=== PATIENT | male | born 1960 | race Caucasian/White ===

== ENCOUNTER 2019-12-16 16:45 | Inpatient (IN) | payer OTHER ==
[~2019-12-16] VITALS: Ht 170.2 cm; Wt 71.0 kg
[2019-12-16 17:39] LABS: BASOPHILS ABSOLUTE AUTO 2.32 K/mm3 (0.00-0.23); BASOPHILS PERCENT AUTO 1 % (0-2); Hemoglobin 13.5 g/dL (13.5-17.5); Mean Corpuscular HGB 30.2 pg (26.0-34.0); Mean Corpuscular HGB Conc 32.1 g/dL (31.5-36.5); Mean Corpuscular Volume 94 fL (80-100); NRBC ABSOLUTE 0.18 K/mm3 (0.00-0.02); NRBC Auto 0.1 /100 WBC (0.0-0.2); RDW Coefficient Variation 16.4 % (11.7-14.2); Red Blood Cell Count 4.47 M/mm3 (4.30-5.90)
[2019-12-16 17:48] LABS: Albumin, Blood 3.5 g/dL (3.4-5.0); Albumin/Globulin Ratio 0.9 (0.8-1.8); Bilirubin, Total 2.1 mg/dL (0.1-1.0); Bun/Creatinine Ratio 8.4 (12.0-20.0); Calcium, Blood 8.7 mg/dL (8.5-10.1); Creatinine, Blood 2.15 mg/dL (0.60-1.20); Globulin, Blood 3.7 g/dL (2.2-4.0); Potassium, Blood 3.1 mmol/L (3.5-5.5); Total Protein, Blood 7.2 g/dL (6.4-8.2)
[2019-12-16 18:27] LABS: BAND PERCENT MAN 2 % (0-8); BASOPHILS PERCENT MAN 1 % (0-2); EOSINOPHILS PERCENT MAN 0 % (0-6); LYMPHOCYTES PERCENT MAN 6 % (21-46); MONOCYTES PERCENT MAN 65 % (4-13); SEG NEUTROPHILS PERCENT MAN 13 % (41-73); TOTAL CELLS COUNTED 100
[2019-12-16 18:29] LABS: OTHER CELL PERCENT MAN 13 % (0-0)
[2019-12-16 18:37] LABS: EOSINOPHILS ABSOLUTE AUTO 0.17 K/mm3 (0.00-0.68); EOSINOPHILS PERCENT AUTO 0 % (0-6); IMMATURE GRAN ABSOLUTE AUTO 15.35 K/mm3 (0.00-0.10); IMMATURE GRAN PERCENT AUTO 5 % (0-1); LYMPHOCYTES ABSOLUTE AUTO 59.22 K/mm3 (0.84-5.20); LYMPHOCYTES PERCENT AUTO 21 % (21-46); MONOCYTES ABSOLUTE AUTO 160.73 K/mm3 (0.16-1.47); MONOCYTES PERCENT AUTO 56 % (4-13); Mean Platelet Volume 10.8 fL (9.1-12.4); NEUTROPHILS ABSOLUTE AUTO 48.09 K/mm3 (1.96-9.15); NEUTROPHILS ABSOLUTE MAN 42.88 K/mm3 (1.96-9.15); NEUTROPHILS PERCENT AUTO 17 % (41-73); Platelet Count 53 K/mm3 (150-400)
[2019-12-16 18:45] LABS: Hematocrit 42.7 % (37.0-53.0); Hemoglobin 13.9 g/dL (13.5-17.5); Mean Corpuscular HGB 30.9 pg (26.0-34.0); Mean Corpuscular HGB Conc 32.6 g/dL (31.5-36.5); Mean Corpuscular Volume 95 fL (80-100); NRBC Auto 0.1 /100 WBC (0.0-0.2); RDW Coefficient Variation 16.8 % (11.7-14.2); RDW Standard Deviation 59.1 fL (35.1-46.3)
[2019-12-16 18:48] LABS: BASOPHILS ABSOLUTE MAN 2.85 K/mm3 (0.00-0.23); LYMPHOCYTES ABSOLUTE MAN 17.15 K/mm3 (0.84-5.20); MONOCYTES ABSOLUTE MAN 185.82 K/mm3 (0.16-1.47); White Blood Cell Count 285.88 K/mm3 (4.00-11.30)
[2019-12-16 18:48] LABS: BASOPHILS PERCENT AUTO 0 % (0-2); EOSINOPHILS ABSOLUTE AUTO 0.49 K/mm3 (0.00-0.68); EOSINOPHILS PERCENT AUTO 0 % (0-6); IMMATURE GRAN ABSOLUTE AUTO 17.08 K/mm3 (0.00-0.10); IMMATURE GRAN PERCENT AUTO 6 % (0-1); LYMPHOCYTES ABSOLUTE AUTO 13.06 K/mm3 (0.84-5.20); LYMPHOCYTES PERCENT AUTO 4 % (21-46); MONOCYTES ABSOLUTE AUTO 225.59 K/mm3 (0.16-1.47); MONOCYTES PERCENT AUTO 74 % (4-13); NEUTROPHILS ABSOLUTE AUTO 49.37 K/mm3 (1.96-9.15); NEUTROPHILS PERCENT AUTO 16 % (41-73)
[2019-12-16 18:50] LABS: Platelet Count 48 K/mm3 (150-400); White Blood Cell Count 306.29 K/mm3 (4.00-11.30)
[2019-12-16 19:58] LABS: Source, Urine Catheter
[2019-12-16 20:02] LABS: Appearance, Urine Cloudy (Clear); Blood, Urine 4+ (Neg); Color, Urine Amber (P-Yellow); Glucose Qualitative, Urine 2+ (Neg); Ketones, Urine 2+ (Neg); Leukocyte Esterase, Urine 1+ (Neg); Nitrite, Urine Pos (Neg); Protein, Urine 3+ (Neg); Specific Gravity, Urine 1.025 (1.003-1.022); Urobilinogen, Urine 2+ (Normal)
[2019-12-16 20:08] LABS: Bilirubin, Urine 2+ (Neg)
[2019-12-16 20:11] LABS: Squamous Epithelial Cells Rare /hpf (Few)
[2019-12-16 20:13] LABS: Amorphous Light (0-Heavy); Bacteria Mod /hpf
[2019-12-16 20:14] LABS: Transitional Epithelial Cells Few /hpf (0-Rare)
--- NOTE | 2019-12-16 20:35 | NUR ---
PT ARRIVED TO ICU 3 FROM ER ACCOMPANIED BY PICKLE PROCESSOR FÉLIX. PT ABLE TO STAND AND PIVOT TO BED. GETS SOB WITH EXERTION. SPO2 DROPS TO 86% WITH EXERTION. INCREASED O2 TO 11 L VIA HIGH FLOW NC. PT IS A/O X4 AND DENIES PAIN. STATES SOB IS NOT WORSE THAN PREVIOUS.
[2019-12-16 21:01] LABS: Adenovirus Not Detected (NOT DETECT)
[2019-12-16 21:02] LABS: Bordetella pertussis Not Detected (NOT DETECT); Chlamydophila pneumoniae Not Detected (NOT DETECT); Coronavirus 229E Not Detected (NOT DETECT); Coronavirus HKU1 Not Detected (NOT DETECT); Coronavirus NL63 Not Detected (NOT DETECT); Coronavirus OC43 Not Detected (NOT DETECT); Human Metapneumovirus Not Detected (NOT DETECT); Human Rhinovirus/Enterovirus Not Detected (NOT DETECT); Influenza A/2009-H1 Not Detected (NOT DETECT); Influenza A/H1 Not Detected (NOT DETECT); Influenza A/H3 Not Detected (NOT DETECT); Influenza B Not Detected (NOT DETECT); Mycoplasma pneumoniae Not Detected (NOT DETECT); Parainfluenza Virus 1 Not Detected (NOT DETECT); Parainfluenza Virus 2 Not Detected (NOT DETECT); Parainfluenza Virus 3 Not Detected (NOT DETECT); Parainfluenza Virus 4 Not Detected (NOT DETECT); Respiratory Syncytial Virus Not Detected (NOT DETECT)
--- NOTE | 2019-12-16 23:35 | NUR ---
PT WAS PROFUSELY SWEATING, DYSPNEIC, AND RESTLESS. WAS UP TO 11L WITH HIGH FLOW NC AND SPO2 87-91%. CALLED DR. MCKEON AND BIPAP WAS ORDERED. AFTER BEING PLACED ON BIPAP PT IS CALM, NOT SWEATING, AND NOT DYSPNEIC. BIPAP SETTINGS 10/8 FIO2 40%. NOW SPO2 94-96%.
[2019-12-17 02:16] LABS: Hematocrit 43.7 % (37.0-53.0); Hemoglobin 13.9 g/dL (13.5-17.5); Mean Corpuscular HGB 30.5 pg (26.0-34.0); Mean Corpuscular HGB Conc 31.8 g/dL (31.5-36.5); Mean Corpuscular Volume 96 fL (80-100); NRBC ABSOLUTE 0.36 K/mm3 (0.00-0.02); NRBC Auto 0.1 /100 WBC (0.0-0.2); RDW Coefficient Variation 16.6 % (11.7-14.2); RDW Standard Deviation 58.7 fL (35.1-46.3); Red Blood Cell Count 4.55 M/mm3 (4.30-5.90)
[2019-12-17 02:20] LABS: Platelet Count 47 K/mm3 (150-400); White Blood Cell Count 351.24 K/mm3 (4.00-11.30)
[2019-12-17 02:36] LABS: Albumin, Blood 2.7 g/dL (3.4-5.0); Albumin/Globulin Ratio 0.8 (0.8-1.8); Bilirubin, Total 3.1 mg/dL (0.1-1.0); Bun/Creatinine Ratio 9.6 (12.0-20.0); Calcium, Blood 7.5 mg/dL (8.5-10.1); Creatinine, Blood 2.7 mg/dL (0.60-1.20); Globulin, Blood 3.3 g/dL (2.2-4.0)
[2019-12-17 02:38] LABS: Troponin I 1.13 ng/mL (0.000-0.040)
--- NOTE | 2019-12-17 02:49 | NUR ---
PT C/O SHARP R ABD PAIN. LET DR. MCKEON KNOW AND FENTANYL GIVEN. PT RESTING QUIETLY AFTER FENTANYL. TROPONIN ALSO REPORTED AND NO NEW ORDERS RECEIVED.
--- NOTE | 2019-12-17 03:55 | NUR ---
CALLED DR. MCKEON AND NO ANSWER, LEFT A MESSAGE TO COME TO ICU 3 [facility]. WILL KEEP CALLING. PT IS EXTREMELY DIAPHORETIC, SAYS HE IS BURNING HOT BUT HE IS COLD TO THE TOUCH. TOOK ORAL TEMP WAS 93.4. PT IS ONLY ABLE TO SPEAK A COUPLE WORDS AT A TIME. USING ACCESSORY MUSCLES. UNABLE TO GET ACCURATE SP02 READING DUE TO PT BEING SO CLAMMY. WANTS TO TAKE BIPAP OFF. HAVING TO HOLD BIPAP ON AND TRYING TO KEEP PT CALM. LAUNDRY OPERATOR HAS CALLED DR. MCKEON WELL TRYING TO GET HIM TO THE BEDSIDE.
--- NOTE | 2019-12-17 04:15 | NUR ---
DR. MCKEON AT THE BEDSIDE GETTING REPORT ON THE PT WHEN HE BECAME UNRESPONSIVE AND NO PULSE WAS FOUND. SEE CODE BLUE FLOWSHEET.
--- NOTE | 2019-12-17 05:15 | NUR ---
PT WAS CODED AND WAS ONLY ABLE TO REGAIN PULSE FOR A SHORT AMOUNT OF TIME BEFORE HE WAS CODED AGAIN. WHEN ADMITTING THE PT HE DENIES ANY CARDIAC HISTORY AND DENIED RESP HISTORY. LS WERE CLEAR T/O AND NEVER CHANGED. AFTER GETTING BIPAP ORDER EARLIER IN THE NIGHT PT WAS ABLE TO RELAX ON THE BIPAP FOR AWHILE BEFORE HE STARTED TO DECLINED. AT ADMIT WHEN ASKED IF HE HAD ANY NEXT OF KIN THAT WOULD NEED UPDATED HE STATED HIS "GIRLFRIEND" BUT DID NOT WANT TO GIVE A NUMBER OR PERMISSION FOR US TO TELL HER INFO OVER THE PHONE. HE STATED THAT SHE WOULD JUST CALL HIM AND HE HAD HIS CELL PHONE IN HIS HAND. CLERICAL ORDER FILLER GOT A NUMBER FOR HIS MOTHER AND HAS ATTEMPTED TO CALL HER WITH NO ANSWER.
== END 2019-12-17 05:09 | DRG 871 ==
LOC: ER 16:45 → ICUW 20:37 → ICUE 20:43
PROVIDERS: Emergency Medicine; Physician Assistant; ADMIT Internal Medicine
PROC: 02HV33Z Insertion of Infusion Device into Superior Vena Cava, Percutaneous Approach (ICD-10-PCS; principal; 2019-12-16)
PROC: 3E043XZ Introduction of Vasopressor into Central Vein, Percutaneous Approach (ICD-10-PCS; 2019-12-16)
DX: A41.9 Sepsis, unspecified organism (principal); J18.9 Pneumonia, unspecified organism; J96.01 Acute respiratory failure with hypoxia; R65.21 Severe sepsis with septic shock; N17.9 Acute kidney failure, unspecified; I31.9 Disease of pericardium, unspecified; I46.2 Cardiac arrest due to underlying cardiac condition; D69.6 Thrombocytopenia, unspecified; E87.6 Hypokalemia; F17.210 Nicotine dependence, cigarettes, uncomplicated
CPT/HCPCS: 0099U; 31500; 31720; 36415; 71250; 80053; 81001; 82550; 82728; 83605; 83615; 83690; 83880; 84145; 84484; 85025; 85027; 87040; 87086; 92950; 93005; 93010; 94002; 94660; 96361; 96365; 96368; 99285-25; A9270; J0456; J0692; J0696; J1644; J1956; J3010; J3475; J3480; J7030; J7050; U0002